=== PATIENT | male | born 1965 | race Caucasian/White ===

== ENCOUNTER 2016-07-17 15:09 | Emergency (ER) | payer SELFPAY ==
[~2016-07-17] VITALS: Ht 182.9 cm; Wt 92.5 kg
[2016-07-17 15:15] VITALS: Ht 182.9 cm; Wt 92.5 kg
[2016-07-17] MEDS ORDERED: PRED20TA PO (20:03)
[2016-07-17] MEDS ORDERED: CEPH-443 PO (20:04)
[2016-07-17] MEDS ORDERED: DIPH25CA6 PO (20:04)
[2016-07-17] MEDS ORDERED: BACTDS PO (20:04)
--- NOTE | 2016-07-17 20:14 | ERD ---
ER Documentation Chief Complaint Date/Time DATE: 07/17/16 TIME: 20:07 Chief Complaint SWOLLEN LIP HPI Patient is a 51-year-old male with past medical history of diabetes who presents to the emergency department with swelling to his lower lip. The swelling is primarily in the left lower region. Patient states that he has a caregiver and he is unsure if he was bit by a spider at his client's house. He reports seeing numerous spiders in the house. Patient states that the swelling started yesterday. He states that the affected areas tender to touch. Patient also noticed a small pustular head on the lower aspect of his lip. He reports some purulent discharge from affected area when squeezed. Patient has been taking Tylenol, Advil and oxycodone on the tops of the pain. Patient denies any throat swelling, lip swelling, shortness of breath, chest pain, chest tightness or loss of consciousness. ROS All systems reviewed and are negative except as per history of present illness. Medications Home Meds Active Scripts Sulfamethoxazole-Trimethoprim* (Bactrim* DS) 800-160 Mg Tab, 1 TAB PO BID for 7 Days, TAB Prov:VENTURA PRECIADO PA-C 07/17/16 Cephalexin* (Keflex*) 500 Mg Capsule, 500 MG PO QID for 7 Days, CAP Prov:VENTURA PRECIADO PA-C 07/17/16 Diphenhydramine Hcl* (Diphenhydramine Hcl*) 25 Mg Capsule, 25 MG PO Q6 Y for ITCHING, #20 CAP Prov:VENTURA PRECIADO PA-C 07/17/16 Prednisone* (Prednisone*) 20 Mg Tab, 40 MG PO DAILY for 4 Days, TAB Prov:VENTURA PRECIADO PA-C 07/17/16 Allergies Allergies: Coded Allergies: No Known Allergy (Unverified , 07/17/16) PMhx/Soc Medical and Surgical Hx: pt denies Surgical Hx History of Surgery: No Anesthesia Reaction: No Hx Neurological Disorder: No Hx Respiratory Disorders: No Hx Cardiac Disorders: No Hx Psychiatric Problems: No Hx Miscellaneous Medical Probl: Yes (DM) Hx Alcohol Use: Yes Hx Substance Use: Yes (MARAJUANA) Hx Tobacco Use: No Smoking Status: Current some day smoker Physical Exam Vitals Vital Signs Date Time Temp Pulse Resp B/P Pulse Ox O2 Delivery O2 Flow Rate FiO2 07/17/16 20:15 98.0 69 18 120/72 97 Room Air 07/17/16 15:15 98.0 87 18 122/76 97 Physical Exam GENERAL: Well-developed, well-nourished male. Appears in no acute distress. Speaking in full sentences. HEAD: Normocephalic, atraumatic. EYES: Pupils are equally reactive bilaterally. EOMs grossly intact. No conjunctival erythema. ENT: External ear without any masses or tenderness. Auditory canals clear bilaterally. No hemotympanium. TM visualized bilaterally, non-erythematous, non- bulging. Nasal septum midline. Nasal mucosa pink with no discharge. Turbinates normal. Oropharynx is pink without any tonsillar erythema or exudates. Good dentition. +Swelling to left lower lip. Affected area appears erythematous and is tender to palpation. Small punctate noted on lower aspect of the lip. No active bleeding or discharge. NECK: Supple. No lymphadenopathy or thyromegaly. No meningismus. LUNG: Clear to auscultation bilaterally. No rhonchi, wheezing, rales or coarse breath sounds. HEART: Regular rate and rhythm. No murmurs, rubs or gallops. ABDOMEN: No scars, ecchymosis or rashes noted. Soft, nontender, and nondistended. Positive bowel sounds in all four quadrants. No rebound tenderness , no guarding. (-) McBurneys point tenderness. BACK: No midline tenderness. EXTREMITIES: Equal pulses bilaterally. No peripheral clubbing, cyanosis or edema. No unilateral leg swelling. NEUROLOGIC: Alert and oriented. Moving all four extremities without any difficulty. Normal speech. Steady gait. SKIN: Normal color. Warm and dry. No rashes or lesions. Results 24 hrs Current Medications Medications (Trade) Dose Ordered Sig/Ruthie Route PRN Reason Start Time Stop Time Status Last Admin Dose Admin Methylprednisolone Sodium Succinate (Solu-Medrol) 125 mg ONCE ONCE IM 07/17/16 20:30 07/17/16 20:31 DC 07/17/16 20:07 Diphenhydramine HCl (Benadryl) 25 mg ONCE ONCE PO 07/17/16 20:30 07/17/16 20:31 DC 07/17/16 20:07 Procedures/MDM ED COURSE: The patient was stable throughout ED course. I kept the patient and/or family informed of laboratory and diagnostic imaging results throughout the ED course. MEDICATIONS GIVEN: Solu-Medrol IM, Benadryl Patient tolerated medication well with no adverse reactions. Patient reported improvement in pain. MEDICAL DECISION MAKING: This is a 51-year-old male with PMHX of DM who presents with lip swelling to the left lower lip. Patient is unsure if he was bit by a spider. Patient denied any throat swelling, tongue swelling, shortness of breath, chest tightness, difficulty breathing. Vital signs were reviewed. Patient was afebrile. Patient was not hypoxic. Given these findings, the patients presentation is most consistent with possible allergic reaction vs cellulitis. I have a much lower clinical concern for anaphylaxis or deep space infection. Given the patient has diabetes and reports discharge from the affected area, I will treat the patient with a course of antibiotics. PRESCRIPTIONS: Benadryl, Prednisone, Bactrim, Keflex. Take Ibuprofen/Tylenol for pain DISCHARGE: At this time, patient is stable for discharge and outpatient management. I have instructed the patient to follow-up with his/her primary care physician in 1-2 days. I have instructed the patient to promptly return to the ER for any new or worsening symptoms including increased pain, swelling, fever, nausea, vomiting, weakness, rash, throat swelling, tongue swelling, chest pain, chest tightness, shortness of breath. The patient and/or family expressed understanding of and agreement with this plan. All questions were answered. Home care instructions were provided. Departure Diagnosis: Primary Impression: Allergic reaction Encounter type: initial encounter Qualified Code: T78.40XA - Allergic reaction, initial encounter Additional Impression: Lip swelling Condition: Stable Patient Instructions: Allergic Reaction, Insect (General) Referrals: [facility] YOU HAVE RECEIVED A MEDICAL SCREENING EXAM AND THE RESULTS INDICATE THAT YOU DO NOT HAVE A CONDITION THAT REQUIRES URGENT TREATMENT IN THE EMERGENCY DEPARTMENT. FURTHER EVALUATION AND TREATMENT OF YOUR CONDITION CAN WAIT UNTIL YOU ARE SEEN IN YOUR DOCTORS OFFICE WITHIN THE NEXT 1-2 DAYS. IT IS YOUR RESPONSIBILITY TO MAKE AN APPOINTMENT FOR FOLOW-UP CARE. IF YOU HAVE A PRIMARY DOCTOR --you should call your primary doctor and schedule an appointment IF YOU DO NOT HAVE A PRIMARY DOCTOR YOU CAN CALL OUR PHYSICIAN REFERRAL HOTLINE AT IF YOU CAN NOT AFFORD TO SEE A PHYSICIAN YOU CAN CHOSE FROM THE FOLLOWING [facility] [address] [facility] [address] [facility] [address] [facility] [address] [facility] [address] [facility]. [facility] [address] [facility]. [facility] YOU HAVE RECEIVED A MEDICAL SCREENING EXAM AND THE RESULTS INDICATE THAT YOU DO NOT HAVE A CONDITION THAT REQUIRES URGENT TREATMENT IN THE EMERGENCY DEPARTMENT. FURTHER EVALUATION AND TREATMENT OF YOUR CONDITION CAN WAIT UNTIL YOU ARE SEEN IN YOUR DOCTORS OFFICE WITHIN THE NEXT 1-2 DAYS. IT IS YOUR RESPONSIBILITY TO MAKE AN APPOINTMENT FOR FOLOW-UP CARE. IF YOU HAVE A PRIMARY DOCTOR --you should call your primary doctor and schedule and appointment IF YOU DO NOT HAVE A PRIMARY DOCTOR YOU CAN CALL OUR PHYSICIAN REFERRAL HOTLINE AT . IF YOU CAN NOT AFFORD TO SEE A PHYSICIAN YOU CAN CHOSE FROM THE FOLLOWING [facility] INSTITUTIONS: [facility] [address] [place] [address] [facility] [address] [place] [address] [facility] [address] [place] [address] Additional Instructions: Call your primary care doctor TOMORROW for an appointment during the next 1-2 days.See the doctor sooner or return here if your condition worsens before your appointment time. Return to emergency department daily for any throat swelling, tongue swelling, shortness of breath, difficulty breathing, chest pain, loss of consciousness. Warm compresses to affected area as recommended. Take antibiotics as prescribed. VENTURA PRECIADO PA-C Jul 17, 2016 20:14
[2016-07-17 20:15] VITALS: BP 120/72; PULSE 69; RESP 18; TEMP 98
[2016-07-17] MEDS ORDERED: METHYLPREDNISOLONE 125 MG INJ IM ONE (20:30)
[2016-07-17] MEDS ORDERED: DIPHENHYDRAMINE 25 MG CAP PO ONE (20:30)
== END 2016-07-17 20:15 | disposition home or self-care (01) ==
LOC: FTE 15:09
DX: R60.0 Localized edema (principal); E11.9 Type 2 diabetes mellitus without complications; F17.210 Nicotine dependence, cigarettes, uncomplicated
CPT/HCPCS: 96372; 99284; J2930